=== PATIENT | male | born 1980 | race Caucasian/White ===

== ENCOUNTER 2019-08-29 16:51 | Emergency (ER) | payer OTHER ==
[~2019-08-29] VITALS: Ht 188 cm; Wt 122.0 kg
[2019-08-29 20:35] VITALS: BP 126/83
[2019-08-29] MEDS ORDERED: triamcinolone acetonide 40mg/ml inj IM ONE (20:35)
[2019-08-29] MEDS ORDERED: PRED10TA PO (20:42)
[2019-08-29] MEDS ORDERED: FAMO40TA73 PO (20:43)
[2019-08-29] MEDS ORDERED: DIPH-423 PO (20:43)
== END 2019-08-29 21:00 | disposition home or self-care (01) ==
LOC: ER 17:08
DX: L23.7 Allergic contact dermatitis due to plants, except food (principal); Z79.899 Other long term (current) drug therapy
CPT/HCPCS: 96372; 99283; J3301